=== PATIENT | female | born 1975 | race Caucasian/White ===

== ENCOUNTER 2020-04-23 10:03 | Outpatient (RCR) | payer MEDICARE, MEDICAID ==
[2020-04-23 11:56] VITALS: BP 117/74
--- NOTE | 2020-04-23 11:56 | Cardiology Stress Test Report ---
Stress Test Report Date of Procedure/Referring: Date of Procedure: Apr 23, 2020 PCP Caty Toribio MD Admitting Physician Caty Toribio MD Indications: Palpitation Baseline Heart Rate: 96 Baseline Blood Pressure: Blood Pressure Systolic: 117 Blood Pressure Diastolic: 74 Baseline EKG: Baseline EKG: normal sinus rhythm, no abnormality Summary/Conclusion: Summary: In summary, the patient started exercising with a baseline heart rate, blood pressure and EKG mentioned above Patient was able to exercise for a total of 3:30minutes on Angelo protocol, METs 5.2 Maximum heart rate 161 Maximum blood pressure 12/71 Stress EKG, Minimal nondiagnostic changes Recovery EKG , Return to baseline Conclusion: 1. Fair exercise tolerance for a total of 3:30 minutes on Angelo protocol, 5.2 METs, achieving 91 percent of maximum expected heart rate 2. Minimal nondiagnostic EKG changes with exercise returned to baseline during recovery 3. No arrhythmia was noted JARED CARDOZA MD Apr 23, 2020 11:56
== END 2020-07-22 | disposition home or self-care (01) ==
LOC: CARD 10:03
PROVIDERS: ATTEND Pediatrics
DX: R00.2 Palpitations (principal)
CPT/HCPCS: 93017; 93225; 93226

== ENCOUNTER → 2021-01-02 | Outpatient (CLI) | payer MEDICARE, MEDICAID ==
[2021-01-02 14:30] VITALS: BP 119/75
--- NOTE | 2021-01-02 16:56 | Cardiology Stress Test Report ---
Stress Test Report Date of Procedure/Referring: Date of Procedure: Jan 02, 2021 PCP Caty Toribio MD Admitting Physician Caty Toribio MD Indications: NSR Baseline Heart Rate: 63 Baseline Blood Pressure: Blood Pressure Systolic: 119 Blood Pressure Diastolic: 75 Baseline EKG: Baseline EKG: NSR Summary/Conclusion: Summary: In summary, the patient started exercising with a baseline heart rate, blood pressure and EKG mentioned above Patient was able to exercise for a total of 5 minutes on Angelo protocol, METs 7 Maximum heart rate 155 Maximum blood pressure 152/66 Stress EKG, Minimal nondiagnostic changes Recovery EKG , Return to baseline Conclusion: 1. Good exercise tolerance for a total of 5 minutes on Angelo protocol, 7 METs, achieving 88 percent of maximum expected heart rate 2. Minimal nondiagnostic EKG changes with exercise returned to baseline during recovery 3. No arrhythmia was noted JARED CARDOZA MD Jan 02, 2021 16:56
== END ==
LOC: CARD 14:00
PROVIDERS: ATTEND Pediatrics
DX: R00.2 Palpitations (principal)
CPT/HCPCS: 93017

== ENCOUNTER → 2022-06-23 | Outpatient (CLI) | payer MEDICARE, MEDICAID | LOC: CARD 10:21 | PROVIDERS: ATTEND Internal Medicine Cardiovascular Disease | DX: I47.1 Supraventricular tachycardia (principal) | CPT/HCPCS: 93306 ==

== ENCOUNTER → 2022-07-15 | Outpatient (CLI) | payer MEDICARE, MEDICAID | LOC: LAB 09:28 | PROVIDERS: ATTEND Internal Medicine Cardiovascular Disease | DX: E78.2 Mixed hyperlipidemia (principal) | CPT/HCPCS: 36415; 84443 ==

== ENCOUNTER 2022-08-08 11:49 | Emergency (ER) | payer MEDICARE, MEDICAID ==
[~2022-08-08] VITALS: Ht 167.7 cm; Wt 55.9 kg
--- NOTE | 2022-08-08 12:12 | ED EENT ---
History of Present Illness General Chief Complaint: Ear Problems Stated Complaint: LT EAR INFECTION Nursing Triage Note: Pt states he has had left ear pain since thursday, states pain radiates to jaw and neck. is deaf in right ear and has chronic ear infections usually in the right. denies fever Source: patient Exam Limitations: no limitations (ANAT GARRIDO) History of Present Illness Date Seen by Provider: Aug 08, 2022 Time Seen by Provider: 12:05 Initial Comments 47 F with pmh of recurrent chronic ear infections come to the ED with complaint of Lt ear pain that radiates to the jaw. Opening and closing jaw does not elicit pain. pain feels like "pressure inside of the ear with fluid around the ear drum." yesterday pt cleaned out a "bunch of ear wax" but denies any discharge or hearing loss. Pt has been taking tylenol and using a heating pad with mild pain relief. Denies any fever, chills, n/v, diarrhea, congestion, or sick contacts. Pt notes her throat is starting to become painful but denies any trouble swallowing Timing/Duration: other (2 days ago) Location: ear (L) Prearrival Treatment: over the counter meds Associated Symptoms: No change in hearing, No cough, No ear drainage; facial pain/swelling (L TMJ pain ); No fever, No nasal congestion/drainage; sore throat (mild ) (ANAT GARRIDO) Allergies and Home Medications Allergies Coded Allergies: Penicillins (Verified Allergy, Unknown, 08/08/22) erythromycin base (Verified Allergy, Unknown, 08/08/22) Patient Home Medication List Home Medication List Reviewed: Yes (ANAT GARRIDO) Review of Systems Review of Systems Constitutional: No chills, No diaphoresis, No fever Eyes: Denies Drainage, Denies Pain, Denies Vision Changes Ears: Denies Dizziness; Pain (lt ear pain); Denies Tinnitus, Denies Bloody Discharge, Denies Clear Discharge Nose: denies congestion, denies pain, denies purulent discharge, denies serosanguinous discharge Mouth: denies swelling, denies purulent discharge, denies serosanguinous discharge Throat: pain (mild ); denies swelling, denies discharge, denies hoarse, denies painful swallowing Respiratory: No cough, No short of breath Cardiovascular: No chest pain, No edema Gastrointestinal: No abdominal pain, No constipation, No diarrhea, No dysphagia Musculoskeletal: no symptoms reported Skin: no symptoms reported Neurological: Denies Anxiety, Denies Depressed Hematologic/Lymphatic: No Symptoms Reported Immunological/Allergic: no symptoms reported (ANAT GARRIDO) Past Yyoczkc-Vtuasf-Ubacqf Hx Patient Social History Tobacco Use?: Yes Tobacco type used: Cigarettes Smoking Status: Current Everyday Smoker Substance use?: No Alcohol Use?: No (ANAT GARRIDO) Immunizations Up To Date Influenza Vaccine Up-to-Date: Yes; Up-to-Date (ANAT GARRIDO) Physical Exam Vital Signs Vital Signs - First Documented 08/08/22 11:53 Temp 36.9 Pulse 108 Resp 18 B/P (MAP) 150/98 (115) Pulse Ox 100 (LISA CONTEH MD) Height, Weight, BMI Height: '" Weight: lbs. oz. kg; 19.00 BMI Method: General Appearance: WD/WN, no apparent distress Eyes: bilateral eye normal inspection, bilateral eye PERRL, bilateral eye EOMI Ears: left ear auricle normal, left ear erythema (of canal ), left ear TM dull Nose: normal inspection; No discharge, No sinus tenderness Mouth/Throat: normal mouth inspection; No pharynx swelling, No tonsillar swelling Neck: non-tender, supple, normal inspection Cardiovascular: regular rate, rhythm, no edema, no murmur Respiratory: chest non-tender, lungs clear, normal breath sounds, no respiratory distress, no accessory muscle use Gastrointestinal: non tender, soft, no organomegaly, no pulsatile mass Neurologic/Psychiatric: alert, normal mood/affect, oriented x 3 Skin: normal color, warm/dry (ANAT GARRIDO) Progress/Results/Core Measures Results/Orders My Orders Orders - LISA CONTEH MD Acetaminophen Tablet (Tylenol Tablet) (08/08/22 12:30) (LISA CONTEH MD) Vital Signs/I&O 08/08/22 11:53 Temp 36.9 Pulse 108 Resp 18 B/P (MAP) 150/98 (115) Pulse Ox 100 (LISA CONTEH MD) Blood Pressure Mean: 115 Departure Impression Primary Impression: Otalgia of left ear Disposition: 01 HOME, SELF-CARE Condition: Stable Departure-Patient Inst. Decision time for Depature: 12:27 (LISA CONTEH MD) Referrals: CELIA VILLEGAS MD (PCP/Family) Primary Care Physician Add. Discharge Instructions: You can take over the counter Tylenol 2 extra strength tablets every 6 hours OR 3 ibuprofen (600mg) every 6 hours as needed for pain. You can continue to use a little heat on your eat as needed. Return to the Emergency Department for any worsening pain, fever, or other emerg ent concerning symptoms. Verification and Attestation of Medical Student E/M Service A medical student performed and documented this service in my presence. I reviewed and verified all information documented by the medical student and made modifications to such information, when appropriate. I personally performed the physical exam and medical decision making. Lisa Conteh, Aug 08, 2022,12:30 (LISA CONTEH MD) Copy Copies To 1: CELIA VILLEGAS MD, DAULTON Aug 08, 2022 12:12 LISA CONTEH MD Aug 08, 2022 12:29
[2022-08-08] MEDS ORDERED: ACETAMINOPHEN 500 MG TAB (TYLENOL) PO ONE (12:30)
[2022-08-08 12:34] VITALS: BP 133/78
== END 2022-08-08 12:34 | disposition home or self-care (01) ==
LOC: EDUNIT# 11:49 → ER 11:50
DX: H92.02 Otalgia, left ear (principal); F17.210 Nicotine dependence, cigarettes, uncomplicated
CPT/HCPCS: 99283

== ENCOUNTER 2023-03-27 23:13 | Emergency (ER) | payer MEDICARE, MEDICAID ==
[~2023-03-27] VITALS: Ht 167.7 cm; Wt 60.0 kg
[2023-03-27 23:34] VITALS: BP 122/82
[2023-03-28] MEDS ORDERED: NAPR-1071 PO (00:12)
--- NOTE | 2023-03-28 00:13 | ED Lower Extremity ---
General Chief Complaint: Lower Extremity Stated Complaint: LEFT FOOT PAIN Nursing Triage Note: Pt presents with c/o L foot pain. She states it began hurting before work at approx 1330 today. 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 Pt states when foot is elevated it does not hurt, only when she steps down, pain mostly in the heel. Source: patient Exam Limitations: no limitations History of Present Illness Date Seen by Provider: Mar 28, 2023 Time Seen by Provider: 00:00 Initial Comments Patient is a 48yo fmale to the ER with a complaint of left mid foot and heel pain. ONset this afternoon before work. She states she was on her feet all day and her foot continued to worsen. She got home and after she rested a bit - she states she was unable to put any weight on her left foot. She states she has not taken anything for the pain. Has never had pain like this before. Cannot rec all any trauma. Stepping down on the foot makes it hurt. No rashes. Wearing the same shoes she normally does. NO pain when she is off her foot. Onset: yesterday Severity: severe Pain/Injury Location: left foot Method of Injury: unknown Modifying Factors: Improves With Immobilization; Worse With Movement; Improves With Rest Allergies and Home Medications Allergies Coded Allergies: Penicillins (Verified Allergy, Unknown, 08/08/22) erythromycin base (Verified Allergy, Unknown, 08/08/22) Patient Home Medication List Home Medication List Reviewed: Yes Naproxen (Naprosyn) 500 Mg Tablet, 500 MG PO BID Prescribed by: AMRITA CONTEH on 03/28/23 0012 Review of Systems Constitutional: see HPI Respiratory: no symptoms reported Cardiovascular: no symptoms reported Gastrointestinal: no symptoms reported Musculoskeletal: joint pain (left foot - middle of sole of foot and heel) Skin: no symptoms reported Past Nmqlfmn-Wqvddf-Qblact Hx Immunizations Up To Date Influenza Vaccine Up-to-Date: Yes; Up-to-Date Physical Exam Vital Signs Vital Signs - First Documented 03/27/23 23:34 Temp 36.6 Pulse 84 Resp 16 B/P (MAP) 122/82 (95) Capillary Refill : Less Than 3 Seconds Height, Weight, BMI Height: '" Weight: lbs. oz. kg; 21.00 BMI Method: General Appearance: WD/WN, no apparent distress HEENT: PERRL/EOMI Cardiovascular: regular rate, rhythm Respiratory: no respiratory distress, no accessory muscle use Hips: bilateral hip non-tender, bilateral hip normal inspection, bilateral hip normal range of motion, bilateral hip no evidence of injury Legs: bilateral leg non-tender, bilateral leg normal inspection, bilateral leg normal range of motion, bilateral leg no evidence of injury Knees: bilateral knee non-tender, bilateral knee normal inspection, bilateral knee normal range of motion, bilateral knee no evidence of injury Ankles: bilateral ankle non-tender, bilateral ankle normal inspection, bilateral ankle normal range of motion, bilateral ankle no evidence of injury Feet: left foot limited range of motion, left foot pain, left foot soft tissue tenderness, left foot other (patient has tenderness to palpation over the plantar fascia of the left foot from the mid foot to the heel. Achilles tendon i s intact. no rashes/skin wounds/ecchymoses) Neurologic/Tendon: normal motor functions, normal tendon functions Neurologic/Psychiatric: alert, normal mood/affect, oriented x 3 Skin: normal color, warm/dry Progress/Results/Core Measures Results/Orders My Orders Orders - AMRITA CONTEH MD Naproxen Tablet (Naproxen Tablet) (03/28/23 00:15) Vital Signs/I&O 03/27/23 23:34 Temp 36.6 Pulse 84 Resp 16 B/P (MAP) 122/82 (95) Blood Pressure Mean: 95 Progress Progress Note : Progress Note patient seen and examined by me. Evaluation today includes physical exam - which is remarkable for plantar fascia tenderness to palpation. No swelling erythema or rash. Rest of the exam is unremarkable. DDX based on H&P includes foot sprain, plantar fasciitis Consideration for imaging (foot xray) however H&P do not support the need. Conservative therap recommended as I believe based on presentation this is plantar fasciitis. I recommended Ice packs (rolling on a frozen water bottle) plantar fascia stretches, NSAIDS, I recc she follow up with a range examiner or her PCP for further management such as a brace/sock. Patient was given a work note for tomorrow. Advised on OTC Alleve. Departure Impression Primary Impression: Plantar fasciitis Disposition: 01 HOME, SELF-CARE Condition: Stable Departure-Patient Inst. Decision time for Depature: 00:08 Referrals: CELIA VILLEGAS MD (PCP/Family) Primary Care Physician Patient Instructions: Plantar Fasciitis Exercises Add. Discharge Instructions: Roll your left foot on a frozen bottle of water for 20min 4-6 times a day. Naproxen 500mg tablets, 1 every 12 hours as needed for pain. Always take this medication with food. Stretching exercises as outlined on your discharge instructions. Look for a shoe insert for "plantar fasciitis" in the foot section of the pharmacy at [facility]. You can look online ([employer]) for a "plantar fasciitis night sock" or "splint". Which may be helpful. Call your primary care doctor on Thursday for a follow up appointment next week. Scripts Naproxen (Naprosyn) 500 Mg Tablet 500 MG PO BID for 14 Days, #28 TAB 0 Refills Prov: AMRITA CONTEH MD 03/28/23 Work/School Note: Work Release Form Date Seen in the Emergency Department: Mar 28, 2023 Return to Work: Mar 29, 2023 Copy Copies To 1: CELIA VILLEGAS MD, KATHRYN M MD Mar 28, 2023 00:12
[2023-03-28] MEDS ORDERED: NAPROXEN 250 MG TABLET PO ONE (00:15)
== END 2023-03-28 00:26 | disposition home or self-care (01) ==
LOC: EDUNIT# 23:13 → ER 23:17
DX: M72.2 Plantar fascial fibromatosis (principal)
CPT/HCPCS: 99283

== ENCOUNTER → 2023-06-03 | Outpatient (CLI) | payer MEDICARE, MEDICAID ==
[~2023-06-03] MED LIST: DOXY100T31 PO; NAPR-1071 PO
== END ==
LOC: ORTHO 09:30
PROVIDERS: ATTEND Orthopaedic Surgery
DX: M72.2 Plantar fascial fibromatosis (principal)
CPT/HCPCS: 20551; 99203

== ENCOUNTER 2023-06-08 14:25 | Emergency (ER) | payer MEDICARE, MEDICAID ==
[~2023-06-08] VITALS: Ht 165 cm; Wt 60.0 kg
[~2023-06-08 14:25] MED LIST changes: -DOXY100T31 PO
[2023-06-08] MEDS ORDERED: NS IV 1000 ML 1,000 ML IV STA (14:43)
--- NOTE | 2023-06-08 14:45 | ED Cough/URI ---
General Chief Complaint: Cough/Cold/Flu Symptoms Stated Complaint: RESPIRATORY ILLNESS | SOB | COUGH Nursing Triage Note: PT AMB TO RM 9 WITH C/O COUGH AND SOB X2 DAYS Source: patient Exam Limitations: no limitations History of Present Illness Date Seen by Provider: Jun 08, 2023 Time Seen by Provider: 14:44 Initial Comments Patient is a 48-year-old female who presents to ED who presents to the ED for shortness of breath chest pain nasal congestion and cough. Symptoms started 2 days ago with a wet productive cough. She has associated shortness of breath specially with exertion. Chest pressure and pain in her anterior chest as well as her back. She denies any fever chills vomiting diarrhea. Does have a history of arrhythmia currently on metoprolol. She denies of any fever chills body aches, headache, dizziness, ear pain, throat pain, abdominal pain. She is concern for bronchitis. Denies history of asthma. Patient does have a history of smoking. Patient denies taking medication at home. History of bronchitis and feels like this is very similar. No recent travels or surgeries. Denies any leg pain, bruising or redness. Allergies and Home Medications Allergies Coded Allergies: Penicillins (Verified Allergy, Unknown, 08/08/22) erythromycin base (Verified Allergy, Unknown, 08/08/22) Patient Home Medication List Home Medication List Reviewed: Yes Doxycycline Monohydrate (Doxycycline Monohydrate) 100 Mg Tablet, 100 MG PO BID Prescribed by: MILADYS BARRIENTOS on 06/08/23 1626 Naproxen (Naprosyn) 500 Mg Tablet, 500 MG PO BID Prescribed by: AMRITA CONTEH on 03/28/23 0012 Review of Systems Review of Systems Constitutional: No chills, No diaphoresis, No malaise, No weakness EENTM: No hearing loss, No ear pain, No blurred vision, No mouth pain, No throat pain, No throat swelling Respiratory: cough, short of breath Cardiovascular: No chest pain Gastrointestinal: No abdominal pain, No diarrhea, No nausea, No vomiting Genitourinary: No decreased output, No discharge Musculoskeletal: No back pain, No joint pain Skin: No change in color, No change in hair/nails All Other Systems Reviewed Negative Unless Noted: Yes Past Qpdynzi-Oofqsj-Wmnlly Hx Patient Social History Tobacco Use?: Yes Tobacco type used: Cigarettes Substance use?: No Alcohol Use?: No Pt feels they are or have been: No Immunizations Up To Date Influenza Vaccine Up-to-Date: Yes; Up-to-Date Past Medical History Surgery/Hospitalization HX: HTN, DEPRESSION MASTOID, KIDNEY SURGERY Physical Exam Vital Signs - First Documented 06/08/23 14:37 Temp 38.0 Pulse 125 Resp 16 B/P (MAP) 123/87 (99) Pulse Ox 97 O2 Delivery Room Air Capillary Refill : Height: '" Weight: lbs. oz. kg; 22.00 BMI Method: General Appearance: WD/WN, no apparent distress Eyes: Bilateral Eye Normal Inspection, Bilateral Eye PERRL, Bilateral Eye EOMI HEENT: PERRL/EOMI, normal ENT inspection, TMs normal, pharynx normal Neck: non-tender, full range of motion, supple Respiratory: chest non-tender, lungs clear, normal breath sounds, no respiratory distress, no accessory muscle use Cardiovascular: no edema, no gallop, no JVD, tachycardia Gastrointestinal: normal bowel sounds, non tender, soft Extremities: normal range of motion, non-tender, normal inspection, no pedal edema Neurologic/Psychiatric: nurse manager II-XII nml as tested, no motor/sensory deficits, alert, normal mood/affect Skin: normal color, warm/dry Progress/Results/Core Measures Suspected Sepsis SIRS Temperature: Pulse: 125 Respiratory Rate: 16 Laboratory Tests 06/08/23 15:05: White Blood Count 7.0 Blood Pressure 123 /87 Mean: 99 Laboratory Tests 06/08/23 15:05: Creatinine 1.09, Platelet Count 245, Total Bilirubin 0.3 Results/Orders Lab Results Laboratory Tests Test 06/08/23 15:05 Range/Units White Blood Count 7.0 4.3-11.0 10^3/uL Red Blood Count 4.20 3.80-5.11 10^6/uL Hemoglobin 13.2 11.5-16.0 g/dL Hematocrit 41 35-52 % Mean Corpuscular Volume 98 80-99 fL Mean Corpuscular Hemoglobin 31 25-34 pg Mean Corpuscular Hemoglobin Concent 32 32-36 g/dL Red Cell Distribution Width 13.2 10.0-14.5 % Platelet Count 245 130-400 10^3/uL Mean Platelet Volume 9.9 9.0-12.2 fL Immature Granulocyte % (Auto) 0 % Neutrophils (%) (Auto) 72 42-75 % Lymphocytes (%) (Auto) 16 12-44 % Monocytes (%) (Auto) 11 0-12 % Eosinophils (%) (Auto) 1 0-10 % Basophils (%) (Auto) 0 0-10 % Neutrophils # (Auto) 5.0 1.8-7.8 X 10^3 Lymphocytes # (Auto) 1.1 1.0-4.0 X 10^3 Monocytes # (Auto) 0.8 0.0-1.0 X 10^3 Eosinophils # (Auto) 0.1 0.0-0.3 10^3/uL Basophils # (Auto) 0.0 0.0-0.1 10^3/uL Immature Granulocyte # (Auto) 0.0 0.0-0.1 10^3/uL D-Dimer < 0.27 0.00-0.49 UG/ML Sodium Level 136 135-145 MMOL/L Potassium Level 3.4 L 3.6-5.0 MMOL/L Chloride Level 104 98-107 MMOL/L Carbon Dioxide Level 22 21-32 MMOL/L Anion Gap 10 5-14 MMOL/L Blood Urea Nitrogen 10 7-18 MG/DL Creatinine 1.09 0.60-1.30 MG/DL Estimat Glomerular Filtration Rate 63 BUN/Creatinine Ratio 9 Glucose Level 129 H 70-105 MG/DL Calcium Level 9.1 8.5-10.1 MG/DL Corrected Calcium 8.9 8.5-10.1 MG/DL Total Bilirubin 0.3 0.1-1.0 MG/DL Aspartate Amino Transf (AST/SGOT) 24 5-34 U/L Alanine Aminotransferase (ALT/SGPT) 27 0-55 U/L Alkaline Phosphatase 90 40-136 U/L Troponin I < 0.028 <0.028 NG/ML C-Reactive Protein High Sensitivity 0.93 H 0.00-0.50 MG/DL B-Type Natriuretic Peptide < 10.0 <100.0 PG/ML Total Protein 7.2 6.4-8.2 GM/DL Albumin 4.3 3.2-4.5 GM/DL Influenza Type A (RT-PCR) Not Detected Not Detecte Influenza Type B (RT-PCR) Not Detected Not Detecte SARS-CoV-2 RNA (RT-PCR) Detected H Not Detecte My Orders Orders - RIGO BOUCHER MILADYS Covid 19 Inhouse Test (06/08/23 14:36) Influenza A And B By Pcr (06/08/23 14:36) Cbc And Automated Diff (06/08/23 14:42) Comprehensive Metabolic Panel (06/08/23 14:42) Troponin I Kyra (06/08/23 14:42) Bnp Kyra (06/08/23 14:42) Chest 1 View, Ap/Pa Only (06/08/23 14:42) Ekg Tracing (06/08/23 14:42) Hs C Reactive Protein (06/08/23 14:43) Ns Iv 1000 Ml (Ns Iv 1000 Ml) (06/08/23 14:43) Fibrin Degradation Products (06/08/23 15:05) Ed Iv/Invasive Line Start (06/08/23 15:08) Vital Signs/I&O 06/08/23 06/08/23 14:37 16:38 Temp 38.0 Pulse 125 Resp 16 18 B/P (MAP) 123/87 (99) 127/84 Pulse Ox 97 98 O2 Delivery Room Air Room Air Capillary Refill : Blood Pressure Mean: 99 ECG Comment Sinus tachycardia, possible left atrial lodgment, possible right ventricular conduction delay, 114 bpm, QRS duration 81 MS, QTc 372 MS. Departure Communication (PCP) History of SVT currently on metoprolol who presents to ED for chest pain, short of breath, cough. Differential diagnosis viral syndrome, pneumonia, PE, ACS. Cardiac work-up was initiated chest x-ray and COVID influenza. She was tachycardic concern for PE but was not hypoxic. Started on a liter of fluid. EKG was obtained which showed sinus tachycardia 114 bpm. CBC, CMP was grossly unremarkable besided Potassium 3.4. Normal troponin, BNP and D-dimer. Chest x- ray was negative for pneumonia, pneumothorax. Patient tested positive for COVID. Patient lung sounds were clear bilateral. No wheezing, retractions. 98% on room air. Heart rate improved to the 90s after liter of fluid. Patient has no significant cormorbidities. She is an everyday smoker. Patient is within timeframe for Paxlovid. She does not want to take. I did prescribe doxycycline prophylactically due to her history of smoking. Continue with Tylenol at home for aches and pains or fever. Recommend staying hydrated. Provided restrictions. If increasing chest pain or shortness of breath to return back to ED. Discussed other alternative [id number] medications to take at home. Follow-up with your PCP in 2 to 3 days for reevaluation. Does not appear to be cardiac in nature. Low cardiac risk factors and low heart score Impression Primary Impression: COVID-19 Disposition: 01 HOME, SELF-CARE Condition: Stable Departure-Patient Inst. Decision time for Depature: 16:15 Referrals: RADHA THORNTON APRN (PCP/Family) Primary Care Physician Patient Instructions: COVID-19 (DC) Add. Discharge Instructions: Recommend staying hydrated. Recommend isolating for 5 days at the start of symptoms. If asymptomatic may return back to work but recommend wearing a mask for additional 5 days. If any worsening symptoms such as shortness of breath or chest pain to return back to ED. All discharge instructions reviewed with patient and/or family. Voiced understanding. Scripts Doxycycline Monohydrate (Doxycycline Monohydrate) 100 Mg Tablet 100 MG PO BID for 7 Days, #14 TAB Prov: RIGO BOUCHER 06/08/23 RIGO BOUCHER Jun 08, 2023 14:45
[2023-06-08 15:24] LABS: BASOPHILS % (AUTO) 0 % (0-10); EOSINOPHILS # (AUTO) 0.1 10^3/uL (0.0-0.3); EOSINOPHILS % (AUTO) 1 % (0-10); HEMATOCRIT 41 % (35-52); HEMOGLOBIN 13.2 g/dL (11.5-16.0); LYMPHOCYTES # (AUTO) 1.1 X 10^3 (1.0-4.0); LYMPHOCYTES % (AUTO) 16 % (12-44); MEAN CORPUSCULAR HEMOGLOBIN 31 pg (25-34); MEAN CORPUSCULAR HGB CONC 32 g/dL (32-36); MEAN CORPUSCULAR VOLUME 98 fL (80-99); MEAN PLATELET VOLUME 9.9 fL (9.0-12.2); MONOCYTES # (AUTO) 0.8 X 10^3 (0.0-1.0); MONOCYTES % (AUTO) 11 % (0-12); NEUTROPHILS % (AUTO) 72 % (42-75); PLATELET COUNT 245 10^3/uL (130-400)
[2023-06-08 15:25] LABS: ALBUMIN 4.3 GM/DL (3.2-4.5); CHLORIDE 104 MMOL/L (98-107); POTASSIUM 3.4 MMOL/L (3.6-5.0); SODIUM 136 MMOL/L (135-145)
[2023-06-08 15:26] LABS: CALCIUM 9.1 MG/DL (8.5-10.1)
[2023-06-08 15:27] LABS: GLUCOSE 129 MG/DL (70-105)
[2023-06-08 15:28] LABS: TOTAL PROTEIN 7.2 GM/DL (6.4-8.2)
[2023-06-08 15:29] LABS: BILIRUBIN,TOTAL 0.3 MG/DL (0.1-1.0); CARBON DIOXIDE 22 MMOL/L (21-32)
[2023-06-08 15:31] LABS: ALKALINE PHOSPHATASE 90 U/L (40-136); CREATININE SERUM 1.09 MG/DL (0.60-1.30); GFR ESTIMATED 63
--- NOTE | 2023-06-08 15:31 | Diagnostic Imaging Report ---
INDICATION: Cough. TECHNIQUE: Frontal chest obtained at 03:26 p.m. FINDINGS: Heart and mediastinal silhouette are normal in appearance. The lungs are clear. There is no pneumothorax or pleural fluid. There is no overt bony abnormality. IMPRESSION: Negative chest. Dictated by: Dictated on workstation # [id number]
[2023-06-08 15:32] LABS: BUN/CREATININE RATIO 9
[2023-06-08 15:34] LABS: ALANINE AMINOTRANSFERASE 27 U/L (0-55)
[2023-06-08] MEDS ORDERED: DOXY100T31 PO (16:26)
[2023-06-08 16:38] VITALS: BP 127/84
== END 2023-06-08 16:39 | disposition home or self-care (01) ==
LOC: EDUNIT# 14:25 → ER 14:27
DX: U07.1 COVID-19 (principal); R09.81 Nasal congestion; R06.02 Shortness of breath; R07.9 Chest pain, unspecified; R05.9 Cough, unspecified; I49.9 Cardiac arrhythmia, unspecified; F17.210 Nicotine dependence, cigarettes, uncomplicated; Z79.899 Other long term (current) drug therapy
CPT/HCPCS: 36415; 71045; 80053; 83880; 84484; 85025; 85379; 86141; 87636; 93005; 96360